=== PATIENT | male | born 2000 | race Caucasian/White ===

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

== ENCOUNTER 2022-08-27 16:19 | Emergency (ER) | payer MEDICAID ==
[~2022-08-27] VITALS: Ht 172.7 cm; Wt 54.4 kg
[~2022-08-27 16:19] MED LIST changes: +CIPR500T5 PO
[2022-08-27 16:44] VITALS: BP_SYST 114
[2022-08-27] MEDS ORDERED: EPINEPHRINE HCL/PF 1 MG/ML AMP IM ONE (16:45)
--- NOTE | 2022-08-27 16:45 | NUR ---
PT PRESENTS WITH BLANCHING TO BILATERAL EXTREMITIES AND CHEST. PT IS AAOX3 CAP RETURN LESS THAN 3 SECOND.
--- NOTE | 2022-08-27 16:50 | NUR ---
ER at bedside examining patient.
[2022-08-27] MEDS ORDERED: DIPHENHYDRAMINE HCL 50 MG CAPSULE PO ONE (17:15)
[2022-08-27] MEDS ORDERED: DIPH25CA83 PO (17:18)
--- NOTE | 2022-08-27 17:44 | NUR ---
Patient given written and verbal discharge instructions and verbalizes understanding. ER MD discussed with patient the results and treatment provided. Patient in stable condition. ID arm band removed. Rx of BENADRYL given. Patient educated on pain management and to follow up with PMD. Opportunity for questions provided and answered. Medication side effect fact sheet provided.
[2022-08-27 17:48] VITALS: BP_SYST 118
== END 2022-08-27 17:48 | disposition home or self-care (01) ==
LOC: SED 16:19
DX: L50.0 Allergic urticaria (principal); R21 Rash and other nonspecific skin eruption; Z79.899 Other long term (current) drug therapy
CPT/HCPCS: 99282; Q0163; J0171